=== PATIENT | female | born 1975 | race Two or more races ===

== ENCOUNTER → 2022-11-25 | Emergency (ER) | payer MEDICAID, OTHER ==
[~2022-11-25] VITALS: Ht 157.5 cm; Wt 60.1 kg
[~2022-11-25] MED LIST: ALBUAER3 IN; BENZ200C64 PO; BENZLOZ2 MT; NITR-87 PO; SODIUM CHLORIDE 0.9% 1,000 ML IV ONE; ZOFR4T PO
[2022-11-25 18:30] VITALS: BP 143/75; PULSE 102; RESP 18; O2SAT 98
[2022-11-25 19:07] LABS: Hemoglobin 10.4 g/dL (12.2-16.2)
[2022-11-25 19:08] LABS: Hematocrit 32.9 % (36.0-46.0); Mean Corpuscular Hemoglobin 23.4 pg (28.0-32.0); Mean Corpuscular Hgb Conc. 31.6 g/dL (32.0-36.0); Mean Corpuscular Volume 74.1 fL (80.0-100.0); Red Blood Cells 4.43 10^6/uL (4.0-5.20); White Blood Cell 11.9 10^3/uL (4.4-10.8)
[2022-11-25 19:12] LABS: Basophils % (manual) 0 (0.0-2.0); Blast Cells 0; Eosinophils % (manual) 0 (0-7); Promyelocytes % 0; Reactive Lymphocytes 0
[2022-11-25 19:23] LABS: INR 1.11 (0.9-1.15); Partial Thromboplastin Time 27.8 SEC (24.5-34.5); Prothrombin Time 11.6 sec (9.3-11.8)
[2022-11-25 19:28] LABS: Alanine Aminotransferase 62 U/L (7-40); Albumin 3.7 g/dL (3.2-4.8); Alkaline Phosphatase 140 U/L (46-116); Anion Gap 2.6 (5-15); Aspartate Aminotransferase 55 U/L (13-40); Bilirubin, Total 0.5 mg/dL (0.2-1.0); Calcium 9.3 mg/dL (8.7-10.4); Carbon Dioxide 29.4 mmol/L (20-30); Chloride 101 mmol/L (98-107); Glucose 286 mg/dL (74-106); Potassium 4.3 mmol/L (3.5-5.1); Sodium 133 mmol/L (136-145); Total Protein 7.3 g/dL (5.7-8.2)
[2022-11-25 19:34] LABS: BUN/Creatinine Ratio 9.4 (10.0-20.0); Blood Urea Nitrogen < 5 mg/dL (9-23)
[2022-11-25 20:13] LABS: Rapid Strep A Screen-Throat Negative
[2022-11-25 20:26] LABS: Respiratory Syncytial Virus Ag Negative
[2022-11-25 20:28] LABS: Anisocytosis Slight; Band Neutrophils % (manual) 8; Lymphocytes % (manual) 6 (10.0-50.0); Metamyelocytes % 2; Monocytes % (manual) 5 (0-12); Myelocytes % 2; Platelet Estimate Adequate
[2022-11-25 20:29] LABS: Hypochromia Moderate
[2022-11-25 23:42] LABS: Urine Bacteria NONE SEEN /hpf (None Seen); Urine Blood Negative /uL (Negative); Urine Clarity Clear (Clear); Urine Color Yellow (Yellow); Urine Protein, UAD Negative (Negative); Urine Specific Gravity 1.011 (1.001-1.035); Urine Urobilinogen Normal (Negative); Urine WBC 7 /hpf (0 - 5)
== END | disposition left against medical advice (07) ==
LOC: ER 17:31
DX: J02.9 Acute pharyngitis, unspecified (principal); N39.0 Urinary tract infection, site not specified; R50.9 Fever, unspecified; R05.9 Cough, unspecified; E11.65 Type 2 diabetes mellitus with hyperglycemia
CPT/HCPCS: 36415; 71045; 80053; 81001; 81025; 85007; 85027; 85610; 85730; 86850; 86900; 86901; 87070; 87807; 87880

== ENCOUNTER 2023-03-07 13:18 | Emergency (ER) | payer MEDICAID ==
[~2023-03-07] VITALS: Ht 160 cm; Wt 61.8 kg
[~2023-03-07 13:18] MED LIST changes: -SODIUM CHLORIDE 0.9% 1,000 ML IV ONE
[2023-03-07] MEDS ORDERED: KETOROLAC TROMETH 30 MG/ML 1ML VIAL IM ONE (16:00)
[2023-03-07] MEDS ORDERED: IBUP-1455 PO (16:09)
[2023-03-07] MEDS ORDERED: CYCL-837 PO (16:09)
[2023-03-07 16:19] VITALS: BP 140/73; PULSE 92; RESP 16; TEMP 97.5; O2SAT 100
== END 2023-03-07 16:11 | disposition home or self-care (01) ==
LOC: ER 13:18
DX: S40.011A Contusion of right shoulder, initial encounter (principal); E11.9 Type 2 diabetes mellitus without complications; V49.9XXA Car occupant (driver) (passenger) injured in unspecified traffic accident, initial encounter; Y93.89 Activity, other specified; Y92.488 Other paved roadways as the place of occurrence of the external cause; Y99.8 Other external cause status
CPT/HCPCS: 96372; 99283; J1885